=== PATIENT | female | born 1975 | race Hispanic/Latino ===

== ENCOUNTER 2023-08-29 15:24 | Emergency (ER) | payer MEDICAID ==
[~2023-08-29] VITALS: Ht 172.7 cm; Wt 139.7 kg
[2023-08-29 15:27] VITALS: RESP 20
[2023-08-29 16:14] LABS: BASOPHILS # (AUTO) 0.02 K/uL (0.00-0.20); BASOPHILS % (AUTO) 0.3 % (0.0-5.0); EOSINOPHILS # (AUTO) 0.26 K/uL (0.00-0.70); EOSINOPHILS % (AUTO) 4.2 % (0.0-8.0); HEMATOCRIT 38.7 % (36-48); IMMATURE GRANULOCYTE ABSOLUTE 0.04 K/uL (0-1); LYMPHOCYTES # (AUTO) 1.4 K/uL (1.0-4.8); LYMPHOCYTES % (AUTO) 22.5 % (21.0-51.0); MEAN CORPUSCULAR HEMOGLOBIN 26.4 pg (27.0-33.0); MEAN CORPUSCULAR HGB CONC 32.3 g/dL (32.0-36.0); MEAN CORPUSCULAR VOLUME 81.6 fL (79-99); MONOCYTES # (AUTO) 0.5 K/uL (0.1-1.0); MONOCYTES % (AUTO) 7.3 % (3.0-13.0); PLATELET COUNT (AUTO) 238 K/uL (130-400); RED BLOOD CELL COUNT(AUTO) 4.74 MIL/uL (4.00-5.50); RED CELL DISTRIBUTION WIDTH 14.2 % (11.0-15.5); WHITE BLOOD COUNT (AUTO) 6.1 K/uL (4.8-10.8)
[2023-08-29 16:29] LABS: CREATININE 0.7 mg/dL (0.5-1.0); POTASSIUM 3.9 mmol/L (3.5-5.1)
[2023-08-29 16:38] LABS: SARS-CoV-2, RNA, NAAT POSITIVE SARS CoV-2 (NEGATIVE)
[2023-08-29] MEDS ORDERED: 0.9%NACL 1000ML 1,000 ML IV ONE (17:00)
[2023-08-29] MEDS ORDERED: AZIT250T9 PO (17:24)
[2023-08-29 17:50] VITALS: BP 138/67; PULSE 88
[2023-08-29] MEDS ORDERED: FLUC150T48 PO (18:38)
== END 2023-08-29 17:59 | disposition home or self-care (01) ==
LOC: EDH 15:24
DX: U07.1 COVID-19 (principal); E11.9 Type 2 diabetes mellitus without complications; I10 Essential (primary) hypertension; J44.9 Chronic obstructive pulmonary disease, unspecified; Z88.0 Allergy status to penicillin
CPT/HCPCS: 36415; 71045; 80048; 83605; 84145; 84484; 85025; 87635; 93005

== ENCOUNTER 2023-11-06 07:59 | Day surgery (SDC) | payer MEDICAID ==
[2023-11-06] VITALS (9 sets, daily range): BP systolic 140–154; BP diastolic 91–104; PULSE 74–83; RESP 15–20; TEMP 97.3–97.6
[~2023-11-06] VITALS: Ht 162.6 cm; Wt 142.9 kg
[~2023-11-06 07:59] MED LIST: AMLO-257 PO; AZIT250T9 PO; FLUC150T48 PO; LISI10TA24 PO
[2023-11-06] MEDS: 0.9%NACL 1000ML 1,000 ML IV ONE (08:45)
[2023-11-06] MEDS ORDERED: proPOFol 10 MG/ML 20ML VIAL IV ONE ×2 (09:21→09:48)
[2023-11-06] MEDS ORDERED: ketaMINE 50MG/ML SYRINGE 50 MG/ML DISP.SYRIN ONE (09:22)
== END 2023-11-06 11:20 | disposition home or self-care (01) ==
LOC: DAH 07:59 → ENDO 07:59
PROVIDERS: ATTEND Internal Medicine Gastroenterology
DX: Z12.11 Encounter for screening for malignant neoplasm of colon (principal); D12.0 Benign neoplasm of cecum; K29.50 Unspecified chronic gastritis without bleeding; R10.13 Epigastric pain; K22.89 Other specified disease of esophagus; K76.0 Fatty (change of) liver, not elsewhere classified; I10 Essential (primary) hypertension; E11.9 Type 2 diabetes mellitus without complications; J44.9 Chronic obstructive pulmonary disease, unspecified; E66.01 Morbid (severe) obesity due to excess calories; F41.9 Anxiety disorder, unspecified; Z88.0 Allergy status to penicillin; Z68.43 Body mass index [BMI] 50.0-59.9, adult; Z90.49 Acquired absence of other specified parts of digestive tract; Z79.899 Other long term (current) drug therapy
CPT/HCPCS: 45380; 45385; 43239; 82948 ×2; 81025; J7030 ×2; J3490 ×3; A4620; A4215 ×2; A4223; A4657; A4222; A4221; A4663; A4606; J2704